=== PATIENT | female | born 1975 | race Caucasian/White ===

== ENCOUNTER 2019-01-11 15:52 | Emergency (ER) | payer OTHER ==
[~2019-01-11] VITALS: Ht 154.9 cm; Wt 66.2 kg
[2019-01-11 16:25] VITALS: Ht 154.9 cm; Wt 66.2 kg
[2019-01-11 19:29] VITALS: BP 113/69; PULSE 71; RESP 18
== END 2019-01-11 19:29 | disposition home or self-care (01) ==
LOC: FTE 15:52
DX: O20.9 Hemorrhage in early pregnancy, unspecified (principal); Z3A.01 Less than 8 weeks gestation of pregnancy
CPT/HCPCS: 36415; 76801; 76817; 81001; 84702; 85025; 86900; 86901; Z7502